=== PATIENT | female | born 1965 | race Hispanic/Latino ===

== ENCOUNTER 2016-10-25 17:49 | Emergency (ER) | payer SELFPAY ==
[~2016-10-25] VITALS: Ht 157.5 cm; Wt 73.6 kg
[~2016-10-25 17:49] MED LIST: AMOXICILLIN500 MG OR; AMOXICILLIN500 MG PO; ASPIRIN 81 LOW81 MG PO; ASPIRIN EC81 MG PO; ASPIRIN325 MG PO; CIPRO500 MG OR; FLEXERIL5 M1 PO; GLUCOVANCE5 MG/500 M PO; GLYB/METFO5 MG/500 M PO; GLYBURIDE/METFO1 TAB PO; INSULIN SC; LIPITOR40 MG PO; LISINOPRIL10 MG PO; LORTAB 10 PO; MACROBID100 MG PO; NAPROSYN500 MG PO; PYRIDIUM200 MG PO; ULTRAM50 M1 PO; ULTRAM50 MG PO; ZESTRIL10 M1 PO; [UNRECOGNIZED DRUG - REMARK]
[2016-10-25] MEDS ORDERED: NOVOLIN 70/30 SC (18:47)
[2016-10-25] MEDS ORDERED: LISINOPRIL5 MG PO (18:48)
[2016-10-25] MEDS ORDERED: BAYER ASA325 MG PO (18:49)
[2016-10-25 19:25] LABS: URINE BILIRUBIN - DIPSTICK NEGATIVE (NEGATIVE); URINE BLOOD DIPSTICK NEGATIVE (NEGATIVE); URINE CLARITY CLEAR; URINE COLOR YELLOW; URINE GLUCOSE - DIPSTICK NEGATIVE (NEGATIVE); URINE KETONE NEGATIVE (NEGATIVE); URINE LEUK ESTERASE NEGATIVE (NEGATIVE); URINE NITRITE - DIPSTICK NEGATIVE (Negative); URINE PROTEIN - DIPSTICK TRACE mg/dL (NEG-TRACE); URINE SPECIFIC GRAVITY >=1.030
[2016-10-25 20:06] LABS: HEMATOCRIT 37.7 % (37.0-47.0); HEMOGLOBIN 12.4 g/dl (12.0-16.0); IMMATURE GRANULOCYTES 0.2 % (0.0-1.0); MEAN CELL VOLUME 88.1 fL CALC (80.0-100.0); MEAN CORPUSCULAR HGB CONC 32.9 g/L CALC (32.0-36.0); NEUT# 3.28 thou/uL (2.00-7.15); RED BLOOD COUNT 4.28 mill/uL (4.20-5.60); RED CELL DISTRI WIDTH 12.6 % (11.5-15.5)
[2016-10-25 20:32] LABS: ALBUMIN 3.8 g/dL (3.2-5.0); ALKALINE PHOSPHATASE 159 u/l (38-126); AMYLASE < 30 u/l (30-110); ANION GAP 15 (6-22 (CALC)); BILIRUBIN, TOTAL 0.5 mg/dL (0.0-1.4); BUN 11 mg/dL (7-17); BUN/CREATININE RATIO 21 (12-20 (CALC)); CARBON DIOXIDE 28 mmol/l (22-30); CHLORIDE 104 mmol/l (95-108); CREATININE 0.5 mg/dL (0.5-1.0); GFR > 60 ML/MIN (>=60 (CALC)); GFR FOR AFR.AMER. > 60 ML/MIN (>=60 (CALC)); GLUCOSE 149 mg/dL (65-105); LIPASE 77 u/l (23-300); POTASSIUM 3.8 mmol/l (3.5-5.1); SGOT/AST 24 u/l (14-36); SGPT/ALT 25 u/l (9-52); SODIUM 143 mmol/l (137-146); TOTAL PROTEIN 7.2 g/dL (6.3-8.2)
[2016-10-25 21:43] VITALS: BP 148/86
[2016-10-25] MEDS ORDERED: PERCOCET 5/325M1 TAB PO (21:46)
[2016-10-25] MEDS ORDERED: ORPHENADRINE100 MG PO (21:46)
== END 2016-10-25 22:23 | disposition home or self-care (01) | DRG 392 ==
LOC: ED 17:49
PROVIDERS: Emergency Medicine
DX: R10.11 Right upper quadrant pain (principal); E11.9 Type 2 diabetes mellitus without complications; R10.31 Right lower quadrant pain; Z79.4 Long term (current) use of insulin
CPT/HCPCS: J1956

== ENCOUNTER 2017-07-20 09:10 | Emergency (ER) | payer OTHER ==
[~2017-07-20] VITALS: Ht 157.5 cm; Wt 75.0 kg
[~2017-07-20 09:10] MED LIST changes: +BAYER ASA325 MG PO; +LISINOPRIL5 MG PO; +NOVOLIN 70/30 SC; +ORPHENADRINE100 MG PO; +PERCOCET 5/325M1 TAB PO
[2017-07-20] MEDS ORDERED: KEFLEX500 MG PO (09:40)
[2017-07-20 09:51] VITALS: BP 120/81
== END 2017-07-20 09:52 | disposition home or self-care (01) | DRG 605 ==
LOC: ED 09:10
PROC: 0HQGXZZ Repair Left Hand Skin, External Approach (ICD-10-PCS; principal; 2017-07-20)
DX: S61.412A Laceration without foreign body of left hand, initial encounter (principal); W26.0XXA Contact with knife, initial encounter; Y93.G1 Activity, food preparation and clean up; Y92.89 Other specified places as the place of occurrence of the external cause; Y99.0 Civilian activity done for income or pay

== ENCOUNTER 2017-07-26 13:14 | Emergency (ER) | payer OTHER ==
[~2017-07-26] VITALS: Ht 157.5 cm; Wt 69.4 kg
[~2017-07-26 13:14] MED LIST changes: +KEFLEX500 MG PO
[2017-07-26 13:54] VITALS: BP 145/75
== END 2017-07-26 14:15 | disposition home or self-care (01) | DRG 949 ==
LOC: ED 13:14
DX: S61.412D Laceration without foreign body of left hand, subsequent encounter (principal); T81.30XA Disruption of wound, unspecified, initial encounter